=== PATIENT | female | born 1975 | race Two or more races ===

== ENCOUNTER → 2025-04-21 | Outpatient (CLI) | payer BC, MEDICAID, SELFPAY ==
[2025-04-21 09:49] LABS: Basophils % (Auto) 1 % (0-2.5); Eosinophils % (Auto) 1 % (0-10); Hematocrit 39.6 % (36.0-46.0); Immature Granulocytes % (Auto) 0 % (0-0); Immature Granulocytes Auto 0.01 Thou/mm3 (0.00-0.00); Lymphocytes # (Auto) 1.6 Thou/mm3 (1.0-4.8); Lymphocytes % (Auto) 45 % (10-50); Mean Corpuscular HGB Conc 35.4 g/dl (31.0-37.0); Mean Corpuscular Hemoglobin 30.4 pg (25.0-35.0); Mean Corpuscular Volume 86 fL (80-100); Monocytes # (Auto) 0.3 Thou/mm3 (0.0-0.8); Monocytes % (Auto) 8 % (0-12); Neutrophils # (Auto) 1.6 Thou/mm3 (1.8-7.7); Neutrophils % (Auto) 45 % (37-80); Nucleated Red Blood Cell % 0 /100 WBC (0); Platelet Count 241 Thou/mm3 (140-440); RDW Standard Deviation 41.1 fL (36.4-46.3); Red Blood Count 4.61 Miln/mm3 (4.00-5.20); White Blood Count 3.6 Thou/mm3 (3.6-11.0)
[2025-04-21 10:22] LABS: Glucose Estimated Average 108 mg/dL (80-131); Hemoglobin A1C 5.4 % Hgb (4.8-6.0)
[2025-04-21 11:13] LABS: Alanine Aminotransferase 24 U/L (10-49); Albumin, Serum 4.3 gm/dL (3.5-5.0); Alkaline Phosphatase 94 U/L (46-116); Anion Gap 12 (7-16); Aspartate Amino Transferase 19 U/L (0-34); BUN/Creatinine Ratio 19 Ratio (12-20); Bilirubin,Total 0.7 mg/dL (0.3-1.2); Blood Urea Nitrogen 13 mg/dL (9-23); Carbon Dioxide 25.2 mMol/L (20.0-31.0); Cardiac Risk Estimate 3.3 RATIO (3.7-5.6); Chloride 106 mMol/L (98-107); Cholesterol 205 mg/dL (132-200); Creatinine (Component) 0.7 mg/dL (0.6-1.3); Globulin 2.1 gm/dL (2.3-3.5); Glucose 101 mg/dL (74-106); HDL Cholesterol 63 mg/dL (40-60); LDL Cholesterol,Calculated 93 mg/dL (0-130); Osmolality,Calculated 285 (275-295); Potassium 4.7 mMol/L (3.4-5.1); Sodium 143 mMol/L (136-145); Thyroid Stimulating Hormone 2.17 uIU/mL (0.55-4.78); Total Protein 6.4 gm/dL (5.7-8.2); Triglycerides 246 mg/dL (30-150); eGFR > 60 See Note
== END | disposition home or self-care (01) ==
LOC: COPL 08:51
PROVIDERS: PCP Family Medicine; Referring Provider Family Medicine; Visit Provider Family Medicine
DX: Z13.1 Encounter for screening for diabetes mellitus (principal); E78.5 Hyperlipidemia, unspecified; F41.9 Anxiety disorder, unspecified; I10 Essential (primary) hypertension
CPT/HCPCS: 36415; 80053; 80061; 83036; 84443; 85025

== ENCOUNTER → 2025-06-16 | Outpatient (CLI) | payer BC, MEDICAID, SELFPAY ==
--- NOTE | 2025-06-16 13:30 | XR_ITS ---
Examination: Diagnostic digital mammography, bilateral Computer aided detection 3-D breast Tomosynthesis, bilateral Date and time of exam: June 16, 2025 1343 hours Compared to mammograms dating to February 02, 2016 INDICATIONS: Mammogram October 11, 2023 9 mm nodule nipple level left breast posterior depth Technique: Nonmagnified MLO, CC views of the breasts to been obtained, reconstructed from 3-D Tomosynthesis images. R2 computer aided detection program utilized for evaluation of suspicious masses and/or abnormal calcifications. 3-D Tomosynthesis images obtained. Findings: The breasts are heterogeneously dense, which may obscure small masses Breast marker adjacent to nodule inner left breast Additional breast marker outer left breast CC view posterior depth Focal asymmetry again noted outer left breast anterior depth likely upper left breast anterior depth on the MLO view Impression: BI-RADS Category 0: Incomplete: Need additional imaging evaluation Recommend repeat left breast sonography to compare with the December 04, 2023 exam.
== END | disposition home or self-care (01) ==
LOC: CDIM 13:20
PROVIDERS: PCP Family Medicine; Referring Provider Family Medicine; Visit Provider Family Medicine
DX: R92.8 Other abnormal and inconclusive findings on diagnostic imaging of breast (principal)
CPT/HCPCS: 77062; 77066; G0279

== ENCOUNTER → 2025-07-24 | Outpatient (CLI) | payer BC, MEDICAID, SELFPAY ==
--- NOTE | 2025-07-24 13:37 | XR_ITS ---
Examination: Shoulder bilateral, 6 views Technique: Shoulder AP internal rotation, AP external rotation, Y view each shoulder total 6 views Exam date and time :July 24, 2025, 1354 hours INDICATIONS: Bilateral shoulder pain beginning 4 months ago. FINDINGS: Bilateral moderate osteoarthritis glenohumeral joints Bilateral moderate osteoarthritis acromioclavicular joints No shoulder fracture or dislocation No shoulder calcific tendinitis IMPRESSION: Bilateral moderate osteoarthritis glenohumeral joints
--- NOTE | 2025-07-24 13:37 | XR_ITS ---
Examination: Cervical spine 3 views Technique one AP lateral coned AP cervical spine 3 views Date and time: July 24, 2025, 1347 hours INDICATIONS: Neck pain beginning 4 months ago. FINDINGS: Straightening normal cervical lordosis. No cervical fracture. Advanced degenerative disc disease C4-C5, C5-C6 IMPRESSION: Advanced degenerative disc disease C4-C5, C5-C6
== END | disposition home or self-care (01) ==
PROVIDERS: PCP Nurse Practitioner; Referring Provider Nurse Practitioner; Visit Provider Nurse Practitioner
DX: M50.321 Other cervical disc degeneration at C4-C5 level (principal); M19.012 Primary osteoarthritis, left shoulder; M19.011 Primary osteoarthritis, right shoulder
CPT/HCPCS: 72040; 73030

== ENCOUNTER → 2025-08-25 | Outpatient (CLI) | payer BC, MEDICAID, SELFPAY ==
--- NOTE | 2025-08-25 14:00 | XR_ITS ---
Examination: Breast ultrasound, unilateral, left Date and time of exam: August 25, 2025, 1427 hours INDICATION: Mammogram June 16, 2025 focal asymmetry outer left breast anterior depth Technique: Real-time jernigan scale ultrasonographic imaging performed left breast including all 4 quadrants as well as nipple retroareolar and axillary region. Findings: 1:00 nodule circumscribed 4 x 5 mm 4:00 cyst 4 x 3 mm 5:00 circumscribed nodule 6 x 5 mm 11:00 circumscribed nodule 5 x 5 mm IMPRESSION: BI-RADS Category 3: Probably benign findings. Recommend 1 additional 6-month left breast sonogram follow-up
[2025-08-25 16:42] LABS: Sed Rate (ESR) 1 mm/hr (0-30)
[2025-08-25 16:58] LABS: Alanine Aminotransferase 24 U/L (10-49); Albumin, Serum 4.4 gm/dL (3.5-5.0); Alkaline Phosphatase 88 U/L (46-116); Aspartate Amino Transferase 19 U/L (0-34); Bilirubin,Direct 0.2 mg/dL (0.0-0.3); Bilirubin,Total 0.7 mg/dL (0.3-1.2); C-Reactive Protein < 0.5 mg/dL (0.0-0.9); Total Protein 6.7 gm/dL (5.7-8.2); Uric Acid 4.8 mg/dL (3.1-7.8)
[2025-08-26 15:51] LABS: RA Screen Negative (Negative)
[2025-08-31 06:32] LABS: ANA Screen, IFA NEGATIVE (NEGATIVE); CCP Antibody (IgG)* <16 Units
== END | disposition home or self-care (01) ==
LOC: CDIM 14:32 → COPL 14:57
PROVIDERS: PCP Nurse Practitioner; Referring Provider Nurse Practitioner; Visit Provider Radiology Diagnostic Radiology
DX: R92.8 Other abnormal and inconclusive findings on diagnostic imaging of breast (principal); M19.011 Primary osteoarthritis, right shoulder; M19.012 Primary osteoarthritis, left shoulder
CPT/HCPCS: 36415; 76641; 80076; 84550; 85652; 86038; 86140; 86200; 86430